=== PATIENT | male | born 1945 | race Caucasian/White ===

== ENCOUNTER → 2018-07-05 | Day surgery (SDC) | payer MEDICARE ==
[2018-06-28 10:09] LABS: BASOPHILS # (AUTO) 0.1 (0.0-0.1); BASOPHILS % 0.8 % (0.0-1.0); EOSINOPHILS # (AUTO) 0.5 (0.0-0.4); EOSINOPHILS % 5.8 % (0.0-6.0); HEMATOCRIT 44.1 % (38.2-49.6); HEMOGLOBIN 14.9 g/dL (14.0-18.0); LYMPHOCYTES # (AUTO) 2.2 (1.0-3.2); LYMPHOCYTES % 25.9 % (18.0-39.1); MEAN CORPUSCULAR HEMOGLOBIN 31.5 pg (28-32); MEAN CORPUSCULAR HGB CONC 33.8 g/dL (31-35); MEAN CORPUSCULAR VOLUME 93.2 fL (81-99); MONOCYTES # (AUTO) 0.9 (0.2-0.8); MONOCYTES % 10.1 % (4.4-11.3); NEUTROPHILS # (AUTO) 4.9 (2.1-6.9); NEUTROPHILS % 57.1 % (38.7-80.0); PLATELET COUNT 167 x10e3/uL (140-360); RED BLOOD COUNT 4.73 x10e6/uL (4.3-5.7)
[~2018-07-05] MED LIST: ASPIR 8181 MG PO; ATORVASTATIN CA20 MG PO; FENTANYL CITRATE/PF 100MCG/2 ML INJ ONE; FINASTERIDE5 MG PO; FLOMAX0.4 MG PO; ISOSORBIDE MONO60 MG PO; LOSARTAN POTASS25 MG PO; MYRBETRIQ25 MG PO; PANTOPRAZOLE SO40 MG PO; PLAVIX75 MG PO; PROPOFOL IV EMULSION 10 MG/ML 50 ML VIAL ONE
[2018-07-05 14:20] VITALS: BP 130/68
== END | disposition home or self-care (01) ==
LOC: OR 10:32
PROVIDERS: ATTEND Internal Medicine
DX: K22.70 Barrett's esophagus without dysplasia (principal); K29.70 Gastritis, unspecified, without bleeding; K25.9 Gastric ulcer, unspecified as acute or chronic, without hemorrhage or perforation; K21.0 Gastro-esophageal reflux disease with esophagitis; K59.00 Constipation, unspecified; K57.30 Diverticulosis of large intestine without perforation or abscess without bleeding; K44.9 Diaphragmatic hernia without obstruction or gangrene; I10 Essential (primary) hypertension; J44.9 Chronic obstructive pulmonary disease, unspecified; G47.33 Obstructive sleep apnea (adult) (pediatric); I25.10 Atherosclerotic heart disease of native coronary artery without angina pectoris; E78.5 Hyperlipidemia, unspecified; I25.2 Old myocardial infarction; Z01.812 Encounter for preprocedural laboratory examination; Z79.02 Long term (current) use of antithrombotics/antiplatelets; Z79.82 Long term (current) use of aspirin; Z95.5 Presence of coronary angioplasty implant and graft; Z87.891 Personal history of nicotine dependence
CPT/HCPCS: 36415; 43239; 45380; 85025

== ENCOUNTER 2019-09-14 10:07 | Observation (INO) | payer MEDICARE ==
[~2019-09-14] VITALS: Ht 172.7 cm; Wt 98.9 kg
[~2019-09-14 10:07] MED LIST changes: +ACETAMINOPHEN 1000 MG/100 ML 100 ML IV ONE; +BACITRACIN 50,000 UNIT VIAL ONE; +BUPIVACAINE 0.5%/EPI 30 ML SDV INJ ONE; -FENTANYL CITRATE/PF 100MCG/2 ML INJ ONE; +IBUPROFEN 800MG/ 250ML 250 ML IV ONE; +LIDOCAINE HCL (LTA) 4 ML SOLN ONE; -PROPOFOL IV EMULSION 10 MG/ML 50 ML VIAL ONE; +THROMBIN FOR SOLN 5,000 UNIT VIAL ONE
[2019-09-14] MEDS ORDERED: CEFAZOLIN SOD 1 GM/NS 50ML 100 ML IV ONE (10:35)
--- NOTE | 2019-09-14 10:44 | Diagnostic Imaging Report ---
Chest, 2 views, 09/14/2019. History: Preop, neck surgery. Comparison: None available. Findings: The cardiomediastinal silhouette and pulmonary vasculature are within normal limits. The lungs are clear without evidence of consolidation or pleural effusion. Degenerative changes are present throughout the thoracic spine. There are no acute osseous or soft tissue abnormalities. Impression: No acute cardiopulmonary abnormality. Signed by: Sai Chaves on 09/14/2019 10:41 AM
[2019-09-14] MEDS ORDERED: PROAIR HFA INH8.5 GM INH (10:50)
[2019-09-14] MEDS ORDERED: METOPROLOL SUCC25 MG PO (10:50)
[2019-09-14] MEDS ORDERED: OXYBUTYNIN CHLOR5 MG PO (10:50)
[2019-09-14] MEDS ORDERED: CRESTOR10 MG PO (10:50)
[2019-09-14] MEDS ORDERED: ZETIA10 MG PO (10:50)
[2019-09-14] MEDS ORDERED: PRESERVISION T1 EACH PO (10:50)
[2019-09-14] MEDS ORDERED: GABAPENTIN300 MG PO (10:50)
[2019-09-14 11:17] LABS: BASOPHILS # (AUTO) 0.1 (0.0-0.1); BASOPHILS % 0.7 % (0.0-1.0); EOSINOPHILS # (AUTO) 0.8 (0.0-0.4); HEMATOCRIT 41.9 % (38.2-49.6); HEMOGLOBIN 14.1 g/dL (14.0-18.0); LYMPHOCYTES # (AUTO) 2.6 (1.0-3.2); LYMPHOCYTES % 26.3 % (18.0-39.1); MEAN CORPUSCULAR HEMOGLOBIN 31.4 pg (28-32); MEAN CORPUSCULAR HGB CONC 33.7 g/dL (31-35); MEAN CORPUSCULAR VOLUME 93.3 fL (81-99); MONOCYTES # (AUTO) 0.9 (0.2-0.8); MONOCYTES % 9.3 % (4.4-11.3); NEUTROPHILS # (AUTO) 5.5 (2.1-6.9); NEUTROPHILS % 55.4 % (38.7-80.0); PLATELET COUNT 195 x10e3/uL (140-360); RED BLOOD COUNT 4.49 x10e6/uL (4.3-5.7); RED CELL DISTRIBUTION WIDTH 12.9 % (11.7-14.4)
[2019-09-14 11:28] LABS: ANION GAP 14.1 mmol/L (8-16); CREATININE, SERUM 1.23 mg/dL (0.72-1.25); POTASSIUM 5.1 mmol/L (3.5-5.1)
[2019-09-14] MEDS: LACTATED RINGER'S 1,000 ML IV SCH ×2 (13:08→20:24)
[2019-09-14] MEDS ORDERED: PROMETHAZINE HCL (IM) 25 MG/ML VIAL IM PRN (13:15)
[2019-09-14] MEDS ORDERED: MORPHINE SULFATE 5 MG/ML VIAL IM PRN (13:15)
[2019-09-14] MEDS ORDERED: CEPACOL SORE THROAT LOZENGES PO PRN (13:15)
[2019-09-14] MEDS ORDERED: ACETAMINOPHEN 325 MG TAB PO PRN (13:15)
[2019-09-14] MEDS ORDERED: CARISOPRODOL 350 MG TAB PO PRN (13:15)
[2019-09-14] MEDS ORDERED: OXYCODONE/ACETAMINOPHEN 5-325 1 EACH TABLET PO PRN (13:15)
[2019-09-14] MEDS ORDERED: HYDROMORPHONE 2MG/ML 2 MG/ML ML IV PRN (13:15)
[2019-09-14] MEDS ORDERED: ONDANSETRON HCL INJ 2MG/ML 2ML 2 MG/ML VIAL IV PRN (13:15)
[2019-09-14] MEDS ORDERED: MAGNESIUM/ALUMINUM/SIMETHICONE 30 ML UDC PO PRN (13:15)
[2019-09-14] MEDS ORDERED: ALBUTEROL SULFATE HFA 8GM INHALATION AEROSOL INH PRN (13:15)
[2019-09-14] MEDS ORDERED: CEFAZOLIN SOD 1 GM/NS 50ML 50 ML IV SCH (14:00)
[2019-09-14 14:38] LABS: INR 0.72; PARTIAL THROMBOPLASTIN TIME 23.4 seconds (23.8-35.5); PROTHROMBIN TIME 10.6 seconds (11.9-14.5)
--- OUTSIDE RECORDS SUMMARY | 2019-09-14 16:36 | XMS REPORT ---
Author [facility] Address Unknown Phone Unavailable Care Team Providers Care Group Art Supervisor Name Role Phone TONYA DE JESUS Unavailable Unavailable Payers Payer Name Policy Type Policy Number Effective Date Expiration Date Problems This patient has no known problems. Allergies, Adverse Reactions, Alerts Allergy Name Allergy Type Status Severity Reaction(s) Onset Date Inactive Date Treating Clinician Comments No Known Allergies DA Active U 2017-08-11 00:00:00 Medications This patient has no known medications. Results Test Description Test Time Test Comments Text Results Atomic Results Result Comments CHEST 2 VIEWS 2019-09-14 10:40:00 [place] [address] Patient Name: GABRIEL CHAN MR #: [id number] : 1945 Age/Sex: 74/M Req #: [id number] Adm Physician: Ordered by: TONYA DE JESUS MD Report #: [id number] Location: OR Room/Bed: Procedure: [id number] DX/CHEST 2 VIEWS Exam Date: 09/14/19 Exam Time: 1030 REPORT STATUS: Signed Chest, 2 views, 09/14/2019. History: Preop, neck surgery. Comparison: None available. Findings: The cardiomediastinal silhouette and pulmonary vasculature are within normal limits. The lungs are clear without evidence of consolidation or pleural effusion. Degenerative changes are present throughout the thoracic spine. There are no acute osseous or soft tissue abnormalities. Impression: No acute cardiopulmonary abnormality. Signed by: Sai Chaves on 09/14/2019 10:41 AM Dictated By: SAI CHAVES MD 104 Transcribed By: FRANCY on 09/14/19 104 COPY TO: TONYA DE JESUS MD TROPONIN-I 2019-07-27 14:16:00 TROPONIN-I (test code=TROPI) 0.902 ng/mL 0-0.045 Results previously called PATIENT REFUSED NOTIFIED MARK DE LA ROSA [id number].LAB.CITLALY 07/27/19 1058SPOKE TO MARK ROMANO 73Karan NAZARIO TO HOLD ON TROPI, FOR DR. ALEGRE LABS NEEDED OR NOT. V.LAB.EP 07/09 07/27 [id number] 07:39:00* Test Item Value Reference Range Comments TROPONIN-I (test code=TROPI) 1.380 ng/mL 0-0.045 Results called to MANSI [id number] V.LAB.OA 07/27/19 0739Critical results verified and read back by Nurse? Y COMMENTS TO VOCATIONAL GUIDANCE COUNSELOR: COLLECT 3 HOURS AFTER PREVIOUS SAMPLE- XR CHEST 1 [id number] 00:29:00 FAX: Pradeep Wade [phone] [place]: B St: REG FAX: Darin Gann DO Name: RAMIREZ CHAN [facility] : 1945 Age/S: 74/M [address] [facility] Unit #: [id number] Loc: [place] [address] Phys: Darin Gann DO Acct: [id number] Dis Date: Status: REG ER PHONE #: [phone] Exam Date: 07/26/201913 FAX #: [phone] Reason: CHEST PAIN EXAMS: CPT CODE: [id number] XR CHEST 1 V 50616 HISTORY: Chest pain. Location: C3 COMPARISO N:None FINDINGS: Heart size is mildly promin ent. The lungs are clear of focal consolidation. No effusion, pneum othorax, or acute osseous abnormality. IMPRESSION: 1. No focal consolidation. No other acute abnormalities. at 0029 Reported and signed by: Arturo Mckeon MD CC: Pradeep Clemons; Darin Gann DO Technologist: Annette Kaur Trnscrd Date/Time/By: 07/27/2019 (0029) : By: [email or web address] Orig Print D/T: S: 07/27/2019 (0032) PAGE 1 Signed Report BASIC METABOLIC [id number] 00:27:00* Test Item Value Reference Range Comments SODIUM (test code=NA) 139 mmol/L 136-145 POTASSIUM (test code=K) 4.3 mmol/L 3.5-5.1 CHLORIDE (test code=CL) 107.0 mmol/L 98-107 CARBON DIOXIDE (test code=CO2) 24.0 mmol/L 21-32 ANION GAP (test code=GAP) 12.3 10-20 GLUCOSE (test code=GLU) 245 mg/dL 74-106 BLOOD UREA NITROGEN (test code=BUN) 24 mg/dL 7-18 GLOMERULAR FILTRATION RATE (test code=GFR) > 60 mL/min >=60 Estimated GFR by using Modified MDRD formula.Chronic kidney disease is defined as either kidney damageor GFR <60 mL/min/1.73 m2 for >3 months. CREATININE (test code=CREAT) 1.10 mg/dL 0.7-1.3 BUN/CREATININE RATIO (test code=BUN/CREA) 21.8 10-20 CALCIUM (test code=CA) 9.3 mg/dL 8.5-10.1 [id number] 00:27:00* Test Item Value Reference Range Comments TROPONIN-I (test code=TROPI) <0.015 ng/mL 0-0.045 BASIC METABOLIC [id number] 00:18:00* Test Item Value Reference Range Comments SODIUM (test code=NA) 139 mmol/L 136-145 POTASSIUM (test code=K) 4.3 mmol/L 3.5-5.1 CHLORIDE (test code=CL) 107.0 mmol/L 98-107 CARBON DIOXIDE (test code=CO2) mmol/L 21-32 ANION GAP (test code=GAP) 10-20 GLUCOSE (test code=GLU) mg/dL 74-106 BLOOD UREA NITROGEN (test code=BUN) mg/dL 7-18 GLOMERULAR FILTRATION RATE (test code=GFR) mL/min >=60 CREATININE (test code=CREAT) mg/dL 0.7-1.3 BUN/CREATININE RATIO (test code=BUN/CREA) 10-20 CALCIUM (test code=CA) mg/dL 8.5-10.1 [id number] 00:18:00* Test Item Value Reference Range Comments TROPONIN-I (test code=TROPI) ng/mL 0-0.045 CBC W/O [id number] 00:10:00* Test Item Value Reference Range Comments WHITE BLOOD CELL (test code=WBC) 15.2 K/mm3 4.5-12.5 RED BLOOD CELL (test code=RBC) 4.74 mill/mm3 4.0-5.8 HEMOGLOBIN (test code=HGB) 14.7 gram/dL 13.0-17.5 HEMATOCRIT (test code=HCT) 44.0 % 42.0-52.0 MEAN CELL VOLUME (test code=MCV) 92.8 fL 80-98 MEAN CELL HGB (test code=MCH) 31.0 picogram 27.0-33.0 MEAN CELL HGB CONCETRATION (test code=MCHC) 33.4 gram/dL 33.0-36.0 RED CELL DISTRIBUTION WIDTH (test code=RDW) 13.2 % 11.6-16.2 PLATELET COUNT (test code=PLT) 180 K/mm3 150-450 MEAN PLATELET VOLUME (test code=MPV) 10.7 fL 6.7-11.0 CBC W/O [id number] 00:07:00* Test Item Value Reference Range Comments WHITE BLOOD CELL (test code=WBC) K/mm3 4.5-12.5 RED BLOOD CELL (test code=RBC) mill/mm3 4.0-5.8 HEMOGLOBIN (test code=HGB) 14.7 gram/dL 13.0-17.5 HEMATOCRIT (test code=HCT) 44.0 % 42.0-52.0 MEAN CELL VOLUME (test code=MCV) fL 80-98 MEAN CELL HGB (test code=MCH) picogram 27.0-33.0 MEAN CELL HGB CONCETRATION (test code=MCHC) gram/dL 33.0-36.0 RED CELL DISTRIBUTION WIDTH (test code=RDW) % 11.6-16.2 PLATELET COUNT (test code=PLT) K/mm3 150-450 MEAN PLATELET VOLUME (test code=MPV) fL 6.7-11.0
[2019-09-14] MEDS ORDERED: NON-FORMULARY MEDICATION (Isosorbide Mononitrate (Isosorbide Mononitrate Er) 60 MG) PO SCH (17:00)
[2019-09-14 17:11] VITALS: BP 126/70
[2019-09-14 17:35] VITALS: BP 126/70
[2019-09-14] MEDS: ISOSORBIDE MONONITRATE 30 MG TAB CR PO SCH (17:50)
[2019-09-14] MEDS: GABAPENTIN 300 MG CAP PO SCH (17:50)
[2019-09-14] MEDS: OCUVITE PRESERVISION TABLET PO SCH (17:59)
[2019-09-14] MEDS ORDERED: LIDOCAINE HCL 2% LOCAL INJ 5 ML SDV VIAL INJ ONE (18:07)
[2019-09-14] MEDS ORDERED: ROCURONIUM BROMIDE 10 MG/ML 5ML VIAL ONE (18:07)
[2019-09-14] MEDS ORDERED: DEXAMETHASONE SOD PHOS INJ 4 MG/ML VIAL ONE (18:07)
[2019-09-14] MEDS ORDERED: SEVOFLURANE INHAL SOLN 250 ML PEN BTL ONE (18:07)
[2019-09-14] MEDS ORDERED: ONDANSETRON HCL INJ 2MG/ML 2ML 2 MG/ML VIAL ONE (18:07)
[2019-09-14] MEDS ORDERED: GLYCOPYRROLATE INJ 1MG/ 5 ML SYR ONE (18:07)
[2019-09-14] MEDS ORDERED: PROPOFOL IV EMULSION 10 MG/ML 20 ML VIAL ONE (18:07)
[2019-09-14] MEDS ORDERED: LIDOCAINE HCL 2% JELLY 5 ML TUBE ONE (18:07)
[2019-09-14] MEDS ORDERED: NEOSTIGMINE 5 MG/5ML SYR ONE (18:07)
[2019-09-14] MEDS ORDERED: FENTANYL CITRATE/PF 100MCG/2 ML INJ ONE (18:44)
[2019-09-14] MEDS ORDERED: MIDAZOLAM HCL 2 MG/2 ML VIAL ONE (18:44)
[2019-09-14 19:00] VITALS: BP 117/63
[2019-09-14] MEDS: CEFAZOLIN SOD 1 GM/NS 50ML 50 ML IV SCH (19:10)
--- NOTE | 2019-09-14 19:12 | NUR ---
Report given to shift nurse manager. Respiration even and unlabored without SOB. Call light in reach.
--- NOTE | 2019-09-14 19:28 | Operative Report ---
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 PROCEDURES: 1. C5-C6 anterior cervical diskectomy and microsurgical osteophyte resection and allograft fusion, 68369. 2. Preparation of MTF corticocancellous allograft, 82348. 3. C5-C6 anterior cervical plating with Synthes ZPN plate, 64235. ANESTHESIA: General. 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 He was taken to the operating room for C5-C6 anterior cervical decompression and fusion. PROCEDURE IN DETAIL: After induction of general anesthesia, the patient was placed on the operating table in supine position. The right side of neck was prepped and draped in sterile fashion. The fluoroscopic C-arm was positioned in cross-table lateral orientation. A transverse incision was created on the right side of neck, superimposed on the C5-C6 disk space as determined by fluoroscopy. The platysma was divided in line with the incision. A subplatysmal dissection was carried out and avascular plane of dissection was developed medial to the sternocleidomastoid muscle and was followed medial to the carotid sheath to the anterior border of the cervical spine. The deep cervical fascia was opened. The esophagus was retracted to the left. The attachments of longus colli muscles to the anterolateral aspects of vertebral bodies of C5 and C6 were divided. The anterior longitudinal ligament was resected. [place] posts were inserted into C5 and C6 and the [place] distractor was used to distract the disk space. The anterior annulus of this was incised with a #11 blade. The contents of the C5-C6 disk were thoroughly evacuated with angled curettes and pituitary rongeurs. The posterior osteophytes were meticulously drilled with a 2 mm cutting bur on a high-speed drill until they were completely removed on the left side. The uncinate process was markedly hypertrophic and was associated with the large osteophyte impinging on the left C6 neural foramina, this was drilled down to a thin shell of cortical bone, which was then elevated with a micro hook and removed away from the origin of the C6 nerve root to fully expose and decompress the C6 nerve roots. After satisfactory decompression of the dura and the C6 nerve roots with achieved bilaterally, the wound was irrigated with bacitracin solution. The endplates were prepared for fusion and a piece of MTF tricortical allograft measuring 8 mm in thickness was selected and loaded onto a Synthes ZPN plate. The construct was inserted into the C5-C6 disk space under distraction and tamped in place until the anterior margin of the plate was flushed with anterior margin of the vertebral bodies. The plate was then screwed to the endplates of C5 and C6 with two pairs of screws. The screws entering C5 endplate were 14 mm in length were as those entering the C6 endplate were 16 mm in length. All screws were locked. An excellent construct was obtained. The wound was copiously irrigated with bacitracin solution. Meticulous hemostasis was secured. Retractor was removed. The platysma was closed with 3-0 Vicryl sutures. The skin was closed with 4-0 Monocryl sutures in subcuticular fashion. Steri-Strips and dressing were applied. The patient was awakened, extubated, and taken to postanesthesia care unit in stable condition. No intraoperative complications were encountered. Estimated blood loss was 10 mL. Rubio Yeung MD PP/RUBEN /[id number]
[2019-09-14 20:08] VITALS: BP 117/63
[2019-09-14] MEDS ORDERED: ZOLPIDEM TARTRATE 5 MG TAB PO PRN (21:00)
[2019-09-14] MEDS ORDERED: LOSARTAN POTASSIUM 25 MG TAB PO SCH (21:00)
[2019-09-14] MEDS ORDERED: TAMSULOSIN HCL 0.4 MG CAP PO SCH (21:00)
[2019-09-14] MEDS ORDERED: METOPROLOL SUCCINATE 25 MG TAB XL PO SCH (21:00)
[2019-09-14] MEDS ORDERED: FINASTERIDE 5 MG TAB PO SCH (21:00)
[2019-09-14] MEDS ORDERED: OXYBUTYNIN CHLORIDE 5 MG TAB PO SCH (21:00)
[2019-09-14 23:20] VITALS: BP 121/64
[2019-09-15] MEDS: CEFAZOLIN SOD 1 GM/NS 50ML 50 ML IV SCH ×2 (03:48→12:24)
[2019-09-15 04:25] VITALS: BP 126/65
[2019-09-15] MEDS ORDERED: PANTOPRAZOLE SOD 40 MG TABEC PO SCH (07:30)
[2019-09-15 07:53] VITALS: BP 125/61
[2019-09-15] MEDS: OCUVITE PRESERVISION TABLET PO SCH (08:45)
[2019-09-15] MEDS: GABAPENTIN 300 MG CAP PO SCH (08:45)
[2019-09-15] MEDS: ISOSORBIDE MONONITRATE 30 MG TAB CR PO SCH (08:45)
--- NOTE | 2019-09-15 08:47 | Diagnostic Imaging Report ---
EXAMINATION: C-SPINE 2 VIEWS AP LATERAL INDICATION: Postoperative COMPARISON: None FINDINGS: AP and lateral images of the cervical spine demonstrate postoperative findings of anterior cervical discectomy and fusion at C5-6. No unexpected fracture. Grade 1 anterolisthesis at C4-5. Minimal postoperative prevertebral soft tissue thickening. The minimally visualized lung apices appear clear. IMPRESSION: Status post anterior cervical discectomy and fusion at C5-6. Minimal anterolisthesis at C4-5. Signed by: Bernard Cross MD on 09/15/2019 8:43 AM
[2019-09-15] MEDS ORDERED: EZETIMIBE 10 MG TAB PO SCH (09:00)
[2019-09-15] MEDS ORDERED: SIMVASTATIN 40 MG TAB PO SCH (09:00)
[2019-09-15 09:14] VITALS: BP 125/61
[2019-09-15] MEDS ORDERED: ONDANSETRON HCL 4 MG ORAL DISINTEGRATING TAB PO PRN (11:30)
[2019-09-15 11:40] VITALS: BP 120/56
[2019-09-15] MEDS ORDERED: NORCO 7.5-3251 EACH PO (13:19)
[2019-09-15] MEDS ORDERED: SIMVASTATIN 20 MG TAB PO SCH (21:00)
== END 2019-09-15 14:24 | disposition home or self-care (01) ==
LOC: OR 10:07 → PACU V 16:32 → IMCU 16:45
PROVIDERS: ADMIT Neurological Surgery; ATTEND Neurological Surgery
DX: M50.022 Cervical disc disorder at C5-C6 level with myelopathy (principal); I25.10 Atherosclerotic heart disease of native coronary artery without angina pectoris; G47.33 Obstructive sleep apnea (adult) (pediatric); Z95.5 Presence of coronary angioplasty implant and graft
CPT/HCPCS: 20931; 22551; 22845; 36415; 71046; 72040; 77003; 80048; 85025; 85610; 85730; 86850; 86900; 86920; 88304; 93005; G0378 ×2; J0131; J0690 ×2; J1100; J2001 ×2; J2250; J2405; J2704; J3010; J3490; J7121